=== PATIENT | female | born 1970 | race Caucasian/White ===

== ENCOUNTER → 2021-03-20 | Day surgery (SDC) | payer MEDICARE, OTHER ==
[~2021-03-20] MED LIST: "DEPAKOTE \\\"ER\\\"500 MG" PO; ADVAIR 250-501 EACH INH; ATORVASTATIN CA80 MG PO; BAYER CHEWABLE81 MG PO; CLOPIDOGREL75 MG PO; DEXILANT60 MG PO; FOLIC ACID1 MG PO; FUROSEMIDE40 MG PO; GABAPENTIN800 MG PO; HYDROCODON-ACE1 EAC6 PO; JANUVIA100 MG PO; JARDIANCE25 MG PO; KLONOPIN TAB 00.5 MG PO; LEVOTHYROXINE25 MCG PO; MELOXICAM15 MG PO; METFORMIN ER1000 MG PO; NITROSTAT0.4 MG SL; NURTEC ODT75 MG PO; PRAZOSIN HCL1 MG PO; PROVENTIL HFA6.7 GM INH; QUETIAPINE FUM300 MG PO; TIZANIDINE HCL4 MG PO; TOPAMAX 100 MG100 MG PO; TOVIAZ8 MG PO; VICTOZA 3-0.6 MG/0.1 SQ
== END | disposition home or self-care (01) ==
LOC: OR 08:15
DX: M51.16 Intervertebral disc disorders with radiculopathy, lumbar region (principal); F17.210 Nicotine dependence, cigarettes, uncomplicated; Z88.8 Allergy status to other drugs, medicaments and biological substances; Z79.1 Long term (current) use of non-steroidal anti-inflammatories (NSAID); Z79.82 Long term (current) use of aspirin; Z79.84 Long term (current) use of oral hypoglycemic drugs; Z79.899 Other long term (current) drug therapy
CPT/HCPCS: 76000; J1040; Q9967

== ENCOUNTER → 2021-09-04 | Day surgery (SDC) | payer MEDICARE, OTHER | END | disposition home or self-care (01) | LOC: OR 08:17 | DX: M51.06 Intervertebral disc disorders with myelopathy, lumbar region (principal); M51.16 Intervertebral disc disorders with radiculopathy, lumbar region; G43.909 Migraine, unspecified, not intractable, without status migrainosus; Z79.82 Long term (current) use of aspirin; Z79.02 Long term (current) use of antithrombotics/antiplatelets; Z79.899 Other long term (current) drug therapy | CPT/HCPCS: 76000; 82962; J1040; Q9967 ==